=== PATIENT | female | born 1945 ===

== ENCOUNTER 2021-03-09 12:56 | Outpatient (CLI) | payer OTHER ==
[~2021-03-09 12:56] MED LIST: INDERAL1 MG/M1 IV; SYNTHROID50 MCG PO
== END 2021-03-09 13:01 | disposition home or self-care (01) ==
LOC: RAD 12:56
PROVIDERS: ATTEND Internal Medicine Rheumatology
DX: M51.87 Other intervertebral disc disorders, lumbosacral region (principal)